=== PATIENT | female | born 1975 | race Caucasian/White ===

== ENCOUNTER 2017-01-10 07:55 | Emergency (ER) | payer SELFPAY ==
[~2017-01-10] VITALS: Ht 157.5 cm; Wt 104.0 kg
[~2017-01-10 07:55] MED LIST: BUSP15TA PO; LISI20TA3 PO; METH10TA PO; PRED20 PO; PRIL20CA9 PO; REME15TA PO; VIIB40TA PO
[2017-01-10 08:00] VITALS: BP 149/84; PULSE 66; RESP 16; TEMP 98; O2SAT 99
[2017-01-10] MEDS ORDERED: MELO-1 PO (08:22)
--- NOTE | 2017-01-10 08:23 | PD ---
HPI Chief Complaint: Musculoskeletal Complaint Time Seen by Provider: 08:06 Travel History International Travel<30 days: No Contact w/Intl Traveler<30days: No Traveled to known affect area: No History of Present Illness HPI This is a 41 year old female who presents to the emergency department with pain in her hands, constant, moderate severity, worse with movement described as an aching pain in the joints of her 2nd and 3rd fingers on both hands. Pt. has never had pain like this before. She says she just woke up with it. She works at [employer] and works with her hands at a panchal register hasn't been doing any new repetitive movements. She denies any neck pain or shooting pains down her arms and denies any numbness. She is on methadone for history of opiate dependence. She doesn't have a primary care physician. He also says she's been getting some joint aches in her feet and isn't sure if that's related. PFSH Past Medical History Bipolar Disorder: Yes Anxiety: Yes Depression: Yes Cardiovascular Problems: Yes (HTN) High Cholesterol: Yes Diminished Hearing: No GERD: Yes Hypertension: Yes Respiratory: Yes (BRONCHITIS, PNEUMONIAS) Immunizations Current: Yes PNEUMOCCOCAL Vaccine (Year): 2 ?: Not LMP: MENOPAUSE-+ : 2 Para: 1 Miscarriage: 1 Past Surgical History Surgical History: No Previous Surgery Family History Family Myocardial Infarction: Yes Social History Alcohol Use: Yes (SOCIAL) Tobacco Use: Yes (1PPD) Substance Use: No Allergies-Medications (Allergen,Severity, Reaction): Coded Allergies: No Known Allergies (Verified , 01/10/17) Reported Meds & Prescriptions Reported Meds & Active Scripts Active Reported Viibryd (Vilazodone) 40 Mg Tab 40 Mg PO DAILY Lisinopril-Hctz 20-25 Mg Tab 1 Tab PO DAILY Prilosec (Omeprazole) 20 Mg Cap 20 Mg PO DAILY Remeron (Mirtazapine) 15 Mg Tab 15 Mg PO HS Buspirone (Buspirone HCl) 15 Mg Tab 15 Mg PO BID Methadone (Methadone HCl) 10 Mg Tab 50 Mg PO DAILY Review of Systems Except as stated in HPI: all other systems reviewed are Neg Physical Exam Narrative GENERAL: Well-appearing, no acute distress, nontoxic SKIN: Warm and dry. HEAD: Atraumatic. Normocephalic. Neck: No cervical spine tenderness ENT: No nasal bleeding or discharge. Moist mucous membranes MUSCULOSKELETAL: No obvious deformities. No clubbing. No cyanosis. No edema. Vascular: Less than 2 second capillary refill in both hands in the fingers, tender to palpation along the second and third fingers in both hands, no cyanosis or signs of tissue ischemia NEUROLOGICAL: Awake and alert. No obvious cranial nerve deficits. Motor grossly within normal limits. Normal speech. PSYCHIATRIC: Appropriate mood and affect; insight and judgment normal. Data Data Last Documented VS Vital Signs Date Time Temp Pulse Resp B/P Pulse Ox O2 Delivery O2 Flow Rate FiO2 01/10/17 08:00 98.0 66 16 149/84 99 MDM Medical Decision Making Medical Screen Exam Complete: Yes Emergency Medical Condition: Yes Differential Diagnosis Osteoarthritis, rheumatoid arthritis, cervical radiculopathy, Raynaud phenomenon Narrative Course This is a 41-year-old female who presents to the emergency department with pain in her fingers on both hands. Pain is atypical and seems to be focused in her joints bilaterally. She has no obvious swelling or ischemia involving her fingers. She has no pain in her neck. I doubt a cervical radiculopathy given the pain is localized in her joints and her fingers are very tender. I suspect the patient has arthritis. Patient will be discharged on meloxicam and can follow up as needed. Diagnosis Primary Impression: Arthritis of hand Patient Instructions: General Instructions Departure Forms: Tests/Procedures, Work Release Enter return to work date: Jan 11, 2017 Additional Instructions: If you develop increasing pain, coolness, weakness or numbness of your hands return to the emergency department. Med/Other Pt SpecificInfo: Prescription(s) given Scripts Meloxicam 15 Mg Tab15 Mg PO DAILY #30 TAB Ref 0 Prov:Rayna Zamarripa MD 01/10/17 Disposition: 01 DISCHARGE HOME Condition: Stable Rayna Zamarripa MD Jan 10, 2017 08:23
== END 2017-01-10 08:32 | disposition home or self-care (01) ==
LOC: PHED 07:55
DX: M19.042 Primary osteoarthritis, left hand (principal); M19.041 Primary osteoarthritis, right hand; I10 Essential (primary) hypertension; E78.00 Pure hypercholesterolemia, unspecified; F17.200 Nicotine dependence, unspecified, uncomplicated; Z86.79 Personal history of other diseases of the circulatory system; Z87.19 Personal history of other diseases of the digestive system; Z87.09 Personal history of other diseases of the respiratory system; Z86.59 Personal history of other mental and behavioral disorders
CPT/HCPCS: 99283

== ENCOUNTER 2017-03-16 15:25 | Emergency (ER) | payer MEDICAID, OTHER ==
[~2017-03-16] VITALS: Ht 157.5 cm; Wt 101.0 kg
[~2017-03-16 15:25] MED LIST changes: +MELO-1 PO; -PRED20 PO
[2017-03-16 15:26] VITALS: BP 173/102; PULSE 86; RESP 16; TEMP 98.1; O2SAT 100
--- NOTE | 2017-03-16 16:31 | PD ---
HPI Chief Complaint: Musculoskeletal Complaint Time Seen by Provider: 16:20 Travel History International Travel<30 days: No Contact w/Intl Traveler<30days: No Traveled to known affect area: No History of Present Illness HPI 41-year-old female presents to the emergency room for evaluation of acute on chronic bilateral leg pain for the past 4 days. She cannot localize pain. Patient states she developed bilateral leg pain 1 year ago and was treated successfully with Percocet. She lost her prescription for Percocet and recently switched to methadone but did not like the way it made her feel so she quit methadone cold . States for several weeks following quitting, she had no pain but pain returned 4 days ago without any trauma or injury. States she is on her legs or on day which seems to worsen the fatigue. Patient worked today. She denies lower extremity paresthesias. Pain is the worse at night and when her legs are still and improves slightly with ambulation. She has a constant urge to move her legs which keeps her up at night and is causing severe fatigue. Describes pain as dull, aching in nature. She is taking Cipro and bupropion. Patient is supposed to be on lisinopril/HCTZ but has not had her prescription filled in a long time. PFSH Past Medical History Bipolar Disorder: Yes Anxiety: Yes Depression: Yes Cardiovascular Problems: Yes (HTN) High Cholesterol: Yes Diminished Hearing: No GERD: Yes Hypertension: Yes Respiratory: Yes (BRONCHITIS, PNEUMONIAS) Immunizations Current: Yes Tetanus Vaccination: > 5 Years Influenza Vaccination: No PNEUMOCCOCAL Vaccine (Year): 2 ?: Not LMP: 2 weeks : 2 Para: 1 Miscarriage: 1 Past Surgical History Surgical History: No Previous Surgery Family History Family Myocardial Infarction: Yes Social History Alcohol Use: No Tobacco Use: Yes (1PPD) Substance Use: No Allergies-Medications (Allergen,Severity, Reaction): Coded Allergies: No Known Allergies (Verified , 01/10/17) Reported Meds & Prescriptions Reported Meds & Active Scripts Active Lyrica (Pregabalin) 75 Mg Cap 75 Mg PO DAILY Meloxicam 15 Mg Tab 15 Mg PO DAILY Reported Viibryd (Vilazodone) 40 Mg Tab 40 Mg PO DAILY Prilosec (Omeprazole) 20 Mg Cap 20 Mg PO DAILY Remeron (Mirtazapine) 15 Mg Tab 15 Mg PO HS Buspirone (Buspirone HCl) 15 Mg Tab 15 Mg PO BID Review of Systems Except as stated in HPI: all other systems reviewed are Neg Physical Exam Narrative GENERAL: Well-nourished, well-developed female in no acute distress. Afebrile. Ambulatory. SKIN: Warm and dry. No erythema or ecchymosis. HEAD: Normocephalic. EYES: No scleral icterus. No injection or drainage. NECK: Supple, trachea midline. No JVD or lymphadenopathy. CARDIOVASCULAR: Regular rate and rhythm without murmurs, gallops, or rubs. RESPIRATORY: Breath sounds equal bilaterally. No accessory muscle use. MUSCULOSKELETAL: No cyanosis, or edema. 1+ dorsalis pedis pulses bilaterally. Full range of motion of bilateral lower extremities. Data Data Last Documented VS Vital Signs Date Time Temp Pulse Resp B/P Pulse Ox O2 Delivery O2 Flow Rate FiO2 03/16/17 15:26 98.1 86 16 173/102 100 MDM Medical Decision Making Medical Screen Exam Complete: Yes Emergency Medical Condition: Yes Medical Record Reviewed: Yes Differential Diagnosis Restless leg syndrome versus acute on chronic pain versus Narrative Course 41-year-old female presents to the emergency room for evaluation of acute on chronic bilateral leg pain. Patient was treating her pain with Percocet and methadone but has recently withdrawn from those. Pain is worse at night and accompanied by an urge to move her legs that is keeping her from sleeping. Physical exam is reassuring. No erythema, ecchymosis, or edema of bilateral legs. 1+ dorsalis pedis pulse in bilateral feet. Patient was offered gabapentin and states she has had the medication in the past without significant relief in symptoms. I spoke to my attending physician, Dr. Iglesias , who recommends Lyrica. Patient given short course of low-dose Lyrica with recommendation to follow up with primary care physician for continuation of medication. She was given pamphlet for the [facility]. Diagnosis Primary Impression: Restless leg syndrome Referrals: Primary Care Physician Patient Instructions: General Instructions, Restless Legs Syndrome (ED) Additional Instructions: Rest and drink plenty of fluids. Take ibuprofen with food as directed, as needed for pain. Take Lyrica daily 1-3 hours before bed. Follow-up with a primary care physician for continuation of medication. Return to the emergency room for worsening symptoms. Med/Other Pt SpecificInfo: Prescription(s) given Scripts Pregabalin (Lyrica)75 Mg Cap75 Mg PO DAILY #15 CAP Ref 0 Prov:Emanuel Gudino MD 03/16/17 Disposition: 01 DISCHARGE HOME Condition: Stable Ethel Powers March 16, 2017 16:31
[2017-03-16] MEDS ORDERED: LYRI75CA PO (16:40)
[2017-03-16] MEDS ORDERED: LISI20TA3 PO (16:49)
== END 2017-03-16 16:50 | disposition home or self-care (01) ==
LOC: PHEFT 15:25
DX: G25.81 Restless legs syndrome (principal); M79.605 Pain in left leg; M79.604 Pain in right leg; R53.83 Other fatigue; I10 Essential (primary) hypertension; E78.00 Pure hypercholesterolemia, unspecified; K21.9 Gastro-esophageal reflux disease without esophagitis; F17.210 Nicotine dependence, cigarettes, uncomplicated
CPT/HCPCS: 99283

== ENCOUNTER 2017-03-23 12:55 | Emergency (ER) | payer MEDICAID, OTHER ==
[~2017-03-23] VITALS: Ht 157.5 cm; Wt 97.8 kg
[~2017-03-23 12:55] MED LIST changes: +LYRI75CA PO; -METH10TA PO
[2017-03-23 13:08] VITALS: BP 103/58; PULSE 74; RESP 14; TEMP 98; O2SAT 97
--- NOTE | 2017-03-23 14:07 | PD ---
HPI Chief Complaint: Abdominal Pain Time Seen by Provider: 13:59 Travel History International Travel<30 days: No Contact w/Intl Traveler<30days: No Traveled to known affect area: No History of Present Illness HPI 41-year-old female presents the emergency Department with reports of increasing anxiety, agitation, nausea, vomiting, and decreased appetite over the past 3 days. Patient denies fever, chills, or other symptoms. Patient states she was going a methadone clinic until one month ago when she stopped. She denies suicidal or homicidal ideation. Patient has a history of psychiatric illness with history of anxiety, and bipolar like symptoms including hallucinations. Patient is currently on BuSpar 15 mg 3 times a day, Remeron 15 mg daily at bedtime, and Viibryd (Vilazodone) 40 Mg Tab 40 Mg PO DAILY. Patient feels somewhat manic but denies hallucinations at this time. She denies suicidal or homicidal ideation. Patient states she is normally seen at [facility]. She denies urinary symptoms. She states her stomach feels anxious and tied in knots, but has no specific complaints of pain. She has no known drug allergies. PFSH Past Medical History Bipolar Disorder: Yes Anxiety: Yes Depression: Yes Cardiovascular Problems: Yes (HTN) High Cholesterol: Yes Diminished Hearing: No GERD: Yes Hypertension: Yes Respiratory: Yes (BRONCHITIS, PNEUMONIAS) Immunizations Current: Yes Tetanus Vaccination: < 5 Years Influenza Vaccination: No PNEUMOCCOCAL Vaccine (Year): 2 ?: Not : 2 Para: 1 Miscarriage: 1 Past Surgical History Surgical History: No Previous Surgery Family History Family Myocardial Infarction: Yes Social History Alcohol Use: No Tobacco Use: Yes (1PPD) Substance Use: No Allergies-Medications (Allergen,Severity, Reaction): Coded Allergies: No Known Allergies (Verified , 03/23/17) Reported Meds & Prescriptions Reported Meds & Active Scripts Active Xanax (Alprazolam) 1 Mg Tab 1 Mg PO Q6H PRN Lisinopril-Hctz 20-25 Mg Tab 1 Tab PO DAILY Meloxicam 15 Mg Tab 15 Mg PO DAILY Reported Viibryd (Vilazodone) 40 Mg Tab 40 Mg PO DAILY Remeron (Mirtazapine) 15 Mg Tab 15 Mg PO HS Buspirone (Buspirone HCl) 15 Mg Tab 15 Mg PO BID Review of Systems Except as stated in HPI: all other systems reviewed are Neg General / Constitutional: No: Fever Eyes: No: Visual changes HENT: No: Headaches Cardiovascular: No: Chest Pain or Discomfort Respiratory: No: Shortness of Breath Gastrointestinal: Positive: Nausea, Vomiting, Loss of Appetite, No: Diarrhea, Abdominal Pain Genitourinary: No: Urgency, Frequency, Dysuria Musculoskeletal: No: Pain Skin: No Rash Neurologic: No: Weakness Psychiatric: Positive: Anxiety, Other (somewhat manic.), No: Depression, Suicidal Ideations, Disorder of Thought, Mood Disorder, Substance Abuse, Homicidal Ideation Endocrine: No: Polydipsia Hematologic/Lymphatic: No: Easy Bruising Physical Exam Narrative GENERAL: Patient appears anxious but in no acute distress. SKIN: Warm and dry. Normal color. Normal turgor. No diaphoresis. HEAD: Atraumatic. Normocephalic. EYES: Pupils equal and round. No scleral icterus. No injection or drainage. ENT: No nasal bleeding or discharge. Mucous membranes pink and moist. Pharynx is clear. Airway is patent. NECK: Trachea midline. Supple and nontender. CARDIOVASCULAR: Regular rate and rhythm. RESPIRATORY: No accessory muscle use. Clear to auscultation. Breath sounds equal bilaterally. GASTROINTESTINAL: Abdomen soft, non-tender, nondistended. Hepatic and splenic margins not palpable. No CVA tenderness. MUSCULOSKELETAL: Extremities without clubbing, cyanosis, or edema. No obvious deformities. NEUROLOGICAL: Awake and alert. No obvious cranial nerve deficits. Motor grossly within normal limits. Five out of 5 muscle strength in the arms and legs. Normal speech. PSYCHIATRIC: Patient appears anxious and somewhat manic; insight and judgment normal. Patient is not suicidal or homicidal. Data Data Last Documented VS Vital Signs Date Time Temp Pulse Resp B/P Pulse Ox O2 Delivery O2 Flow Rate FiO2 03/23/17 13:08 98.0 74 14 103/58 97 Orders Complete Blood Count With Diff (03/23/17 14:20) Comprehensive Metabolic Panel (03/23/17 14:20) Urinalysis - C+S If Indicated (03/23/17 14:20) Ed Urine Pregnancytest Poc (03/23/17 14:20) Drug Screen, Random Urine (03/23/17 14:20) Urine Culture (03/23/17 14:30) Labs Laboratory Tests Test 03/23/17 03/23/17 14:30 14:35 Urine Color YELLOW Urine Turbidity CLOUDY Urine pH 5.0 Urine Specific Rogers GREATER THAN 1.035 Urine Protein 100 mg/dL Urine Glucose (UA) NEG mg/dL Urine Ketones TRACE mg/dL Urine Occult Blood NEG Urine Nitrite NEG Urine Bilirubin NEG Urine Leukocyte Esterase NEG Urine WBC 0-2 /hpf Urine Squamous Epithelial > 8 /hpf Cells Urine Amorphous Sediment FEW Urine Bacteria MOD /hpf Microscopic Urinalysis Comment CULTURE INDICATED Urine Barbiturates Screen NEG Urine Amphetamines Screen NEG Urine Benzodiazepines Screen NEG Urine Cannabinoids Screen POS White Blood Count 14.6 TH/MM3 Red Blood Count 5.22 MIL/MM3 Hemoglobin 15.1 GM/DL Hematocrit 45.9 % Mean Corpuscular Volume 88.0 FL Mean Corpuscular Hemoglobin 28.9 PG Mean Corpuscular Hemoglobin 32.9 % Concent Red Cell Distribution Width 14.4 % Platelet Count 338 TH/MM3 Mean Platelet Volume 9.2 FL Neutrophils (%) (Auto) 71.0 % Lymphocytes (%) (Auto) 21.9 % Monocytes (%) (Auto) 5.8 % Eosinophils (%) (Auto) 0.7 % Basophils (%) (Auto) 0.6 % Neutrophils # (Auto) 10.4 TH/MM3 Lymphocytes # (Auto) 3.2 TH/MM3 Monocytes # (Auto) 0.8 TH/MM3 Eosinophils # (Auto) 0.1 TH/MM3 Basophils # (Auto) 0.1 TH/MM3 CBC Comment DIFF FINAL Differential Comment Sodium Level 141 MEQ/L Potassium Level 3.2 MEQ/L Chloride Level 104 MEQ/L Carbon Dioxide Level 29.7 MEQ/L Anion Gap 7 MEQ/L Blood Urea Nitrogen 19 MG/DL Creatinine 1.30 MG/DL Estimat Glomerular Filtration 45 ML/MIN Rate Random Glucose 106 MG/DL Calcium Level 9.3 MG/DL Total Bilirubin 0.5 MG/DL Aspartate Amino Transf 12 U/L (AST/SGOT) Alanine Aminotransferase 24 U/L (ALT/SGPT) Alkaline Phosphatase 84 U/L Total Protein 8.1 GM/DL Albumin 4.4 GM/DL [facility] Medical Decision Making Medical Screen Exam Complete: Yes Emergency Medical Condition: Yes Medical Record Reviewed: Yes Differential Diagnosis Nausea and vomiting. Anxiety. Manic episode. Narrative Course Patient medically stable at time of exam. Labs are ordered including CBC, CMP, urinalysis, urine drug screen. CBC shows mild leukocytosis of 14.6. There is no shift. CMP shows mild hypo kalemia at 3.2. Creatinine is somewhat elevated at 1.30 Urine is concentrated at greater than 1.035. It is cloudy. It is greater than 8 epithelial cells per high-power field and moderate bacteria. It was cultured. However I do not feel this was a clean specimen. Urine drug screen is positive for marijuana otherwise negative. Call was placed to Dr. Negrete, the psychiatrist on-call. 144, call was returned by Dr. Negrete, and the patient was discussed. He recommended the patient stop all of her caffeine and other stimulants, but felt that he should follow-up with her doctor at the [facility] clinic for any medication changes. Patient is discussed with Dr. Calix. Dr. Camacho recommended Ativan 1 mg every 6 hours when necessary #8. Patient is to follow-up with [facility] on Sunday. Patient can come back if symptoms worsen over the weekend. Diagnosis Primary Impression: Anxiety Additional Impressions: Manic affective disorder, recurrent episode, mild degree Dehydration, mild Referrals: [facility] days Patient Instructions: Anxiety (ED), Dehydration (ED), General Instructions Med/Other Pt SpecificInfo: Prescription(s) given Scripts Alprazolam (Xanax)1 Mg Tab1 Mg PO Q6H PRN (ANXIETY) #8 TAB Ref 0 Prov:Agus Camacho MD 03/23/17 Disposition: 01 DISCHARGE HOME Condition: Stable Anibal Naik March 23, 2017 14:06
[2017-03-23 14:57] LABS: CHLORIDE 104 MEQ/L (98-107); POTASSIUM 3.2 MEQ/L (3.5-5.1); SODIUM (NA) 141 MEQ/L (136-145)
[2017-03-23 15:00] LABS: ANION GAP 7 MEQ/L (5-15); BICARBONATE 29.7 MEQ/L (21.0-32.0); BLOOD UREA NITROGEN 19 MG/DL (7-18)
[2017-03-23 15:02] LABS: BLOOD, URINE NEG (NEG); GLUCOSE,URINE NEG (NEG); KETONE, URINE TRACE mg/dL (NEG); NITRITE,URINE NEG (NEG)
[2017-03-23 15:03] LABS: ALT (GPT) 24 U/L (10-53); AST (GOT) 12 U/L (15-37); GLOMERULAR FILTRATION RATE 45 ML/MIN (>89)
[2017-03-23 15:05] LABS: TOTAL BILIRUBIN ADULT 0.5 MG/DL (0.2-1.0)
[2017-03-23 15:06] LABS: ALKALINE PHOSPHATASE 84 U/L (45-117)
[2017-03-23 15:08] LABS: AUTOMATED NEUTROPHIL # 10.4 TH/MM3 (1.8-7.7); BASOPHIL # 0.1 TH/MM3 (0-0.2); BASOPHIL % 0.6 % (0.0-2.0); EOSINOPHIL # 0.1 TH/MM3 (0-0.4); EOSINOPHIL % 0.7 % (0.0-4.0); HEMATOCRIT 45.9 % (35.0-46.0); LYMPH % 21.9 % (9.0-44.0); LYMPHOCYTE # 3.2 TH/MM3 (1.0-4.8); MEAN CORPUSCULAR HEMOGLOBIN 28.9 PG (27.0-34.0); MEAN CORPUSCULAR HGB CONC 32.9 % (32.0-36.0); MONO % 5.8 % (0.0-8.0); PLATELET COUNT 338 TH/MM3 (150-450); RED BLOOD COUNT 5.22 MIL/MM3 (4.00-5.30); RED CELL DISTRIBUTION WIDTH 14.4 % (11.6-17.2); WHITE BLOOD COUNT 14.6 TH/MM3 (4.0-11.0)
[2017-03-23] MEDS ORDERED: XANA1TAB2 PO (15:13)
[2017-03-23 15:15] LABS: HEMO FLAGS DIFF FINAL
[2017-03-23 15:29] LABS: AMPHETAMINE, URINE NEG (NEG)
[2017-03-23 15:30] LABS: BARBITURATES, URINE NEG (NEG); URINE COLOR YELLOW (YELLW/STRAW)
[2017-03-23 15:31] LABS: SQUAMOUS EPITHELIAL CELL URINE > 8 /hpf (0-5); WBC, URINE 0-2 /hpf (0-5)
[2017-03-23 15:32] LABS: BACTERIA, URINE MOD /hpf; COMMENT (UR) CULTURE INDICATED; CULTURE IF INDICATED CULTURE INDICATED
[2017-03-23 15:35] LABS: COCAINE, URINE NEG (NEG)
== END 2017-03-23 15:52 | disposition home or self-care (01) ==
LOC: PHED 12:55 → PHEFT 15:52
DX: F41.9 Anxiety disorder, unspecified (principal); F31.89 Other bipolar disorder; E86.0 Dehydration; R11.2 Nausea with vomiting, unspecified; R63.0 Anorexia; R82.99 Other abnormal findings in urine; E78.00 Pure hypercholesterolemia, unspecified; F17.200 Nicotine dependence, unspecified, uncomplicated; Z86.59 Personal history of other mental and behavioral disorders; Z86.79 Personal history of other diseases of the circulatory system; Z87.19 Personal history of other diseases of the digestive system
CPT/HCPCS: 80053; 80307; 81001; 84703; 85025; 87086; 99284

== ENCOUNTER 2017-12-10 14:43 | Emergency (ER) | payer BC, MEDICAID ==
[~2017-12-10] VITALS: Ht 157.5 cm; Wt 101.6 kg
[~2017-12-10 14:43] MED LIST changes: -LYRI75CA PO; -MELO-1 PO; +MELO15TA20 PO; -PRIL20CA9 PO; +XANA1TAB2 PO
[2017-12-10 14:48] VITALS: BP 240/116; PULSE 77; RESP 16; TEMP 97.9; O2SAT 96
[2017-12-10] MEDS ORDERED: HYDROCHLOROTHIAZIDE 25 MG TAB PO ONE (15:15)
[2017-12-10] MEDS ORDERED: HYDROCHLOROTHIAZIDE 50 MG TAB PO ONE (15:15)
[2017-12-10] MEDS ORDERED: LORazepam 2 MG TAB PO ONE (15:15)
--- NOTE | 2017-12-10 15:18 | PD ---
HPI . High blood pressure Chief Complaint: Hypertension Time Seen by Provider: 15:01 Travel History International Travel<30 days: No Contact w/Intl Traveler<30days: No Traveled to known affect area: No History of Present Illness HPI This is a patient who has a history of high blood pressure but has been off of her HCTZ for several months because of financial reasons. She is a patient at [facility]. She was there today for a routine visit and had her blood pressure checked. It was noted to be high. That has caused her extreme anxiety. She subsequently presents to us for treatment. She is not having chest pain or shortness of breath. No peripheral edema. She does report blurred vision. No significant headache. She states that her high blood pressure is exacerbated by anxiety. Her anxiety is exacerbated by her high blood pressure. PFSH Past Medical History Bipolar Disorder: Yes Anxiety: Yes Depression: Yes Cardiovascular Problems: Yes (HTN) High Cholesterol: Yes Diminished Hearing: No GERD: Yes Hypertension: Yes Respiratory: Yes (BRONCHITIS, PNEUMONIAS) Immunizations Current: Yes PNEUMOCCOCAL Vaccine (Year): 2 : 2 Para: 1 Miscarriage: 1 Social History Alcohol Use: No Tobacco Use: Yes (1PPD) Substance Use: No Allergies-Medications (Allergen,Severity, Reaction): Coded Allergies: No Known Allergies (Verified Adverse Reaction, Unknown, 12/10/17) Reported Meds & Prescriptions Reported Meds & Active Scripts Active Reported Viibryd (Vilazodone) 40 Mg Tab 40 Mg PO DAILY Remeron (Mirtazapine) 15 Mg Tab 15 Mg PO HS Buspirone (Buspirone HCl) 15 Mg Tab 15 Mg PO TID Review of Systems Except as stated in HPI: all other systems reviewed are Neg Eyes: Positive: Blurred Vision Cardiovascular: No: Chest Pain or Discomfort Respiratory: No: Shortness of Breath Musculoskeletal: No: Edema Psychiatric: Positive: Anxiety Physical Exam Narrative GENERAL: Awake and alert. Very anxious. SKIN: warm/dry. Normal color and turgor. HEAD: Normocephalic. Atraumatic. EYES: Pupils equal and round. No scleral icterus. No injection or drainage. ENT: No nasal bleeding or discharge. Mucous membranes pink and moist. NECK: Trachea midline. Full range of motion without pain.. CARDIOVASCULAR: Regular rate and rhythm. Heart sounds normal. RESPIRATORY: No accessory muscle use. Clear to auscultation. Breath sounds equal bilaterally. MUSCULOSKELETAL: No obvious deformities. No peripheral edema. NEUROLOGICAL: Awake and alert. No obvious cranial nerve deficits. Motor grossly within normal limits. Normal speech. PSYCHIATRIC: Very anxious.. Data Data Last Documented VS Vital Signs Date Time Temp Pulse Resp B/P (MAP) Pulse Ox O2 Delivery O2 Flow Rate FiO2 12/10/17 16:15 73 17 211/110 (143) 96 Room Air 12/10/17 14:48 97.9 Orders Orders Lorazepam (Ativan) (12/10/17 15:15) Hydrochlorothiazide (Hydrodiuril) (12/10/17 15:15) Hydrochlorothiazide (Hydrodiuril) (12/10/17 15:15) [facility] Medical Decision Making Medical Screen Exam Complete: Yes Emergency Medical Condition: Yes Differential Diagnosis My differential diagnosis anxiety includes but is not limited to generalized anxiety disorder, depression, psychoses, drug abuse, alcohol abuse Narrative Course This patient presents extremely anxious about her blood pressure. She is supposed to be on HCTZ for hypertension but has not been able to afford it for the last several months. Her blood pressure was taken at [facility] today as part of a routine visit. It was found to be elevated. This has caused her extreme anxiety. I have ordered both Ativan and HCTZ. I have asked the nurse to NOT place her on the blood pressure monitor. Blood pressure is still high but has come down a little. I will discharge her to home with a prescription for her usual medication. Diagnosis Primary Impression: Anxiety Additional Impression: Hypertension Qualified Codes: I10 - Essential (primary) hypertension Patient Instructions: Chronic Hypertension (DC), General Instructions Med/Other Pt SpecificInfo: Prescription(s) given Scripts Hydrochlorothiazide (Hydrochlorothiazide) 25 Mg Tab 25 MG PO DAILY, #30 TAB 0 Refills Prov: Liudmila Austin MD 12/10/17 Disposition: 01 DISCHARGE HOME Condition: Stable Liudmila Austin MD Dec 10, 2017 15:17
[2017-12-10 16:15] VITALS: BP 211/110; PULSE 73; RESP 17; O2SAT 96
[2017-12-10] MEDS ORDERED: HYDR25TA5 PO (16:21)
[2017-12-10] MEDS ORDERED: LISI20TA3 PO (16:55)
== END 2017-12-10 16:59 | disposition home or self-care (01) ==
LOC: PHED 14:43
DX: F41.9 Anxiety disorder, unspecified (principal); I10 Essential (primary) hypertension; F17.210 Nicotine dependence, cigarettes, uncomplicated; F31.9 Bipolar disorder, unspecified; E78.00 Pure hypercholesterolemia, unspecified; K21.9 Gastro-esophageal reflux disease without esophagitis
CPT/HCPCS: 99283

== ENCOUNTER 2017-12-12 11:49 | Emergency (ER) | payer BC ==
[~2017-12-12] VITALS: Ht 157.5 cm; Wt 86.0 kg
[~2017-12-12 11:49] MED LIST changes: -MELO15TA20 PO; -XANA1TAB2 PO
[2017-12-12 11:59] VITALS: BP 137/95; PULSE 114; RESP 18; TEMP 98.1; O2SAT 94
[2017-12-12 12:07] VITALS: BP 127/88; PULSE 103; RESP 18; O2SAT 95
--- NOTE | 2017-12-12 12:21 | PD ---
HPI Chief Complaint: Chest Pain Time Seen by Provider: 12:17 Travel History International Travel<30 days: No Contact w/Intl Traveler<30days: No Traveled to known affect area: No History of Present Illness HPI 42-year-old female patient with history of hypertension, diabetes, smoking, presents to the ER today with several days' history of coughing, and last night started having palpitations and sharp 7 out of 10 chest discomfort which is substernal, sometimes radiates up to her neck, sometimes her back, sometimes down her arms. She states it worsens with exertion and she reports some shortness of breath. She states she is wheezing. She denies any recent fevers , vomiting, or other symptoms. Modifying Factors: Worse with exertion Associated Signs & Symptoms: Coughing, wheezing, chest discomfort, dyspnea on exertion Risk Factors: Smoking PFSH Past Medical History Bipolar Disorder: Yes Anxiety: Yes Depression: Yes Cardiovascular Problems: Yes (HTN) High Cholesterol: Yes Diminished Hearing: No GERD: Yes Hypertension: Yes Respiratory: Yes (BRONCHITIS, PNEUMONIA) Immunizations Current: Yes Influenza Vaccination: No PNEUMOCCOCAL Vaccine (Year): 2 ?: Not LMP: 11/16/17 : 2 Para: 1 Miscarriage: 1 Past Surgical History Surgical History: No Previous Surgery Family History Family Myocardial Infarction: Yes Social History Alcohol Use: Yes (occass) Tobacco Use: Yes (1PPD) Substance Use: No Allergies-Medications (Allergen,Severity, Reaction): Coded Allergies: No Known Allergies (Verified Adverse Reaction, Unknown, 12/10/17) Reported Meds & Prescriptions Reported Meds & Active Scripts Active Lisinopril-Hctz 20-25 Mg Tab 1 Tab PO DAILY Reported Viibryd (Vilazodone) 40 Mg Tab 40 Mg PO DAILY Remeron (Mirtazapine) 15 Mg Tab 15 Mg PO HS Buspirone (Buspirone HCl) 15 Mg Tab 15 Mg PO TID Review of Systems Except as stated in HPI: all other systems reviewed are Neg Physical Exam Narrative GENERAL: Well-developed middle age female patient currently in mild distress. Awake and oriented 3. SKIN: Focused skin assessment warm/dry. HEAD: Atraumatic. Normocephalic. EYES: Pupils equal and round. No scleral icterus. No injection or drainage. ENT: No nasal bleeding or discharge. Mucous membranes pink and moist. NECK: Trachea midline. No JVD. Supple. CARDIOVASCULAR: Regular rate and rhythm. No murmur appreciated. RESPIRATORY: No accessory muscle use. Wheezes throughout. Breath sounds equal bilaterally. GASTROINTESTINAL: Abdomen soft, non-tender, nondistended. Hepatic and splenic margins not palpable. MUSCULOSKELETAL: No obvious deformities. No clubbing. No cyanosis. No edema. NEUROLOGICAL: Awake and alert. No obvious cranial nerve deficits. Motor grossly within normal limits. Normal speech. PSYCHIATRIC: Appropriate mood and affect; insight and judgment normal. Data Data Last Documented VS Vital Signs Date Time Temp Pulse Resp B/P (MAP) Pulse Ox O2 Delivery O2 Flow Rate FiO2 12/12/17 13:06 95 20 96 Room Air 12/12/17 11:59 98.1 Orders Orders Complete Blood Count With Diff (12/12/17 12:17) Comprehensive Metabolic Panel (12/12/17 12:17) D-Dimer (12/12/17 12:17) Act Partial Throm Time (Ptt) (12/12/17 12:17) Prothrombin Time / Inr (Pt) (12/12/17 12:17) Ckmb (Isoenzyme) Profile (12/12/17 12:17) Troponin I (12/12/17 12:17) Influenzae A/B Antigen (12/12/17 12:17) Iv Access Insert/Monitor (12/12/17 12:17) Ecg Monitoring (12/12/17 12:17) Oximetry (12/12/17 12:17) Oxygen Administration (12/12/17 12:17) Chest, Single Ap (12/12/17 12:17) Sodium Chloride 0.9% Flush (Ns Flush) (12/12/17 12:30) Methylprednisolone So Succ Inj (Solumedr (12/12/17 12:30) Albuterol-Ipratropium Neb (Duoneb Neb) (12/12/17 12:30) Albuterol-Ipratropium Neb (Duoneb Neb) (12/12/17 13:45) Labs Laboratory Tests Test 12/12/17 12:25 White Blood Count 10.4 TH/MM3 Red Blood Count 5.50 MIL/MM3 Hemoglobin 16.5 GM/DL Hematocrit 48.9 % Mean Corpuscular Volume 88.9 FL Mean Corpuscular Hemoglobin 29.9 PG Mean Corpuscular Hemoglobin Concent 33.7 % Red Cell Distribution Width 13.5 % Platelet Count 386 TH/MM3 Mean Platelet Volume 8.4 FL Neutrophils (%) (Auto) 65.0 % Lymphocytes (%) (Auto) 28.3 % Monocytes (%) (Auto) 4.2 % Eosinophils (%) (Auto) 1.8 % Basophils (%) (Auto) 0.7 % Neutrophils # (Auto) 6.8 TH/MM3 Lymphocytes # (Auto) 2.9 TH/MM3 Monocytes # (Auto) 0.4 TH/MM3 Eosinophils # (Auto) 0.2 TH/MM3 Basophils # (Auto) 0.1 TH/MM3 CBC Comment DIFF FINAL Differential Comment Prothrombin Time 10.2 SEC Prothromb Time International Ratio 1.0 RATIO Activated Partial Thromboplast Time 25.9 SEC D-Dimer Quantitative (PE/DVT) 0.21 MG/L FEU Blood Urea Nitrogen 20 MG/DL Creatinine 0.82 MG/DL Random Glucose 108 MG/DL Total Protein 8.9 GM/DL Albumin 4.2 GM/DL Calcium Level 9.2 MG/DL Alkaline Phosphatase 89 U/L Aspartate Amino Transf (AST/SGOT) 19 U/L Alanine Aminotransferase (ALT/SGPT) 24 U/L Total Bilirubin 0.5 MG/DL Sodium Level 137 MEQ/L Potassium Level 4.1 MEQ/L Chloride Level 102 MEQ/L Carbon Dioxide Level 27.6 MEQ/L Anion Gap 7 MEQ/L Estimat Glomerular Filtration Rate 76 ML/MIN Total Creatine Kinase 65 U/L Troponin I LESS THAN 0.02 NG/ML MDM Medical Decision Making Medical Screen Exam Complete: Yes Emergency Medical Condition: Yes Medical Record Reviewed: Yes Interpretation(s) EKG shows sinus tachycardia rate of 110 bpm with no signs of acute ST-T changes. Laboratory Tests Test 12/12/17 12:25 Red Blood Count 5.50 MIL/MM3 (4.00-5.30) Hemoglobin 16.5 GM/DL (11.6-15.3) Hematocrit 48.9 % (35.0-46.0) Blood Urea Nitrogen 20 MG/DL (7-18) Random Glucose 108 MG/DL (74-106) Total Protein 8.9 GM/DL (6.4-8.2) Estimat Glomerular Filtration Rate 76 ML/MIN (>89) Troponin I LESS THAN 0.02 NG/ML Last 24 hours Impressions Chest X-Ray 12/12/17 1217 Signed Impressions: Service Date/Time: Tuesday, December 12, 2017 12:31 - CONCLUSION: No acute cardiopulmonary abnormality is identified. Liam Kumar MD Differential Diagnosis Chest discomfort, dyspnea on exertion, wheezing, coughing: Bronchitis versus pneumonia versus ACS Narrative Course Chest x-ray did not show any signs of acute pulmonary processes. Lab work was fairly unremarkable. Patient was wheezing and was given Solu-Medrol and nebulizers in the ER with improvement in symptoms on reevaluation at 2 PM. At this point, my plan would be to release her with further treatment for bronchitis. Return for worsening in symptoms as needed. The plan has been discussed with her and she states understanding. Influenza testing is negative as well. Diagnosis Primary Impression: Acute viral bronchitis Med/Other Pt SpecificInfo: Prescription(s) given Scripts Albuterol 6.7 GM Inh (Proventil Hfa 6.7 GM Inh) 90 Mcg/Act Aer 2 PUFF INH Q4-6H Y for SHORTNESS OF BREATH, #1 INHALER 0 Refills Prov: Angely Ibarra MD 12/12/17 Prednisone (Prednisone) 50 Mg Tab 50 MG PO DAILY for 5 Days, #5 TAB 0 Refills Prov: Angely Ibarra MD 12/12/17 Disposition: 01 DISCHARGE HOME Condition: Stable Angely Ibarra MD Dec 12, 2017 12:21
[2017-12-12 12:30] VITALS: O2SAT 96
[2017-12-12] MEDS ORDERED: SODIUM CHLORIDE 0.9% FLUSH 10 ML FLUSH IVF PRN (12:30)
[2017-12-12] MEDS ORDERED: methylPREDNISolone SOD SUCC 125 MG/2 ML VIAL IV PUSH ONE (12:30)
[2017-12-12 12:37] VITALS: BP 128/83; PULSE 109; RESP 18; O2SAT 95
[2017-12-12] MEDS: RESP: ALBUTEROL 2.5 MG/IPRATROPIUM 0.5 MG NEB (SCH) INH ×3 (12:42→13:54)
[2017-12-12 12:51] LABS: CHLORIDE 102 MEQ/L (98-107); SODIUM (NA) 137 MEQ/L (136-145)
[2017-12-12 12:54] LABS: AUTOMATED NEUTROPHIL # 6.8 TH/MM3 (1.8-7.7); BASOPHIL # 0.1 TH/MM3 (0-0.2); BASOPHIL % 0.7 % (0.0-2.0); EOSINOPHIL # 0.2 TH/MM3 (0-0.4); EOSINOPHIL % 1.8 % (0.0-4.0); HEMATOCRIT 48.9 % (35.0-46.0); HEMOGLOBIN 16.5 GM/DL (11.6-15.3); LYMPH % 28.3 % (9.0-44.0); LYMPHOCYTE # 2.9 TH/MM3 (1.0-4.8); MEAN CELL VOLUME 88.9 FL (80.0-100.0); MEAN CORPUSCULAR HEMOGLOBIN 29.9 PG (27.0-34.0); MEAN CORPUSCULAR HGB CONC 33.7 % (32.0-36.0); MEAN PLATELET VOLUME 8.4 FL (7.0-11.0); MONO % 4.2 % (0.0-8.0); MONOCYTE # 0.4 TH/MM3 (0-0.9); PLATELET COUNT 386 TH/MM3 (150-450); RED CELL DISTRIBUTION WIDTH 13.5 % (11.6-17.2); WHITE BLOOD COUNT 10.4 TH/MM3 (4.0-11.0)
[2017-12-12 12:55] LABS: CALCIUM 9.2 MG/DL (8.5-10.1)
[2017-12-12 12:56] LABS: ALBUMIN 4.2 GM/DL (3.4-5.0); BICARBONATE 27.6 MEQ/L (21.0-32.0); BLOOD UREA NITROGEN 20 MG/DL (7-18); GLUCOSE,RANDOM 108 MG/DL (74-106)
[2017-12-12 12:59] LABS: ALT (GPT) 24 U/L (10-53); AST (GOT) 19 U/L (15-37); CREATININE 0.82 MG/DL (0.50-1.00); GLOMERULAR FILTRATION RATE 76 ML/MIN (>89)
--- NOTE | 2017-12-12 12:59 | RADRPT ---
EXAM DATE/TIME: 12/12/2017 12:31 [facility] COMPARISON: CHEST SINGLE AP, October 08, 2016, 10:14. INDICATIONS : Cough and chest pain MEDICAL HISTORY : None. SURGICAL HISTORY : None. ENCOUNTER: Initial ACUITY: 3 days PAIN SCORE: 5/10 LOCATION: Bilateral chest FINDINGS: Portable AP view of the chest demonstrates a normal-sized cardiac silhouette. The lungs demonstrate n o definite effusion, consolidation, or pneumothorax. The bones and soft tissues demonstrate no acute finding. EKG lines overlie the patient. CONCLUSION: No acute cardiopulmonary abnormality is identified. Liam Kumar MD on December 12, 2017 at 12:56 Board Certified Radiologist. This report was verified electronically.
[2017-12-12 13:00] LABS: TOTAL BILIRUBIN ADULT 0.5 MG/DL (0.2-1.0)
[2017-12-12 13:01] LABS: TOTAL PROTEIN 8.9 GM/DL (6.4-8.2)
[2017-12-12 13:02] LABS: ALKALINE PHOSPHATASE 89 U/L (45-117)
[2017-12-12 13:04] LABS: PROTHROMBIN TIME - PATIENT 10.2 SEC (9.8-11.6); TROPONIN I LESS THAN 0.02 NG/ML (0.02-0.05)
[2017-12-12 13:06] VITALS: PULSE 95; RESP 20; O2SAT 96
[2017-12-12 13:19] LABS: D-DIMER 0.21 MG/L FEU (0.00-0.50)
[2017-12-12] MEDS ORDERED: PRED50 PO (14:23)
[2017-12-12] MEDS ORDERED: ALBU6.7H INH (14:23)
[2017-12-12 14:47] VITALS: BP 138/84
--- NOTE | 2017-12-12 17:24 | EKG ---
Date Performed: 12/12/2017 Time Performed: 11:57:44 PTAGE: 42 years EKG: SINUS TACHYCARDIA ABNORMAL RHYTHM ECG Compared to prior electrocardiogram, rate has increas ed PREVIOUS TRACING : 06/15/2011 02.54 DOCTOR: Rd Landaverde Interpretating Date/Time 12/12/2017 17:23:55
== END 2017-12-12 14:50 | disposition home or self-care (01) ==
LOC: PHED 11:49
DX: J20.8 Acute bronchitis due to other specified organisms (principal); I10 Essential (primary) hypertension; F17.200 Nicotine dependence, unspecified, uncomplicated; R06.02 Shortness of breath
CPT/HCPCS: 71045; 80053; 82550; 84484; 85025; 85379; 85610; 85730; 87804; 93005; 94640; 94664; 96374; 99285; J2930

== ENCOUNTER 2018-07-24 20:05 | Observation (INO) ==
--- NOTE | 2018-07-24 20:26 | ED ---
HPI General Chief complaint: Chest Pain Stated complaint: chest pain since this am History of Present Illness HPI narrative: 43-year-old female with history of hypertension, hyperlipidemia, here for evaluation of chest pain. The patient experienced a discomfort in her left chest this morning which lasted for several seconds and subsided. She went to work, then this evening she had 2 more episodes of left-sided chest discomfort. She described the pain as sharp, nonradiating, not associated with diaphoresis, no modifying factors. No paresthesias or motor deficits. No fevers or recent illness. No dyspnea. There is significant family history of cardiac disease in her mother. She smokes over a pack of cigarettes daily. Currently she is chest pain-free. Related Data Allergies Allergy/AdvReac Type Severity Reaction Status Date / Time No Known Allergies AdvReac Unknown Uncoded 12/10/17 15:02 Review of Systems ROS: all other systems reviewed are negative PMFSH Social History Social History Smoking Status: Current every day smoker Tobacco Type: Cigarettes How Often Do You Have a Drink Containing Alcohol: Never Recent Travel [facility] within the Last 8 Weeks: No Recent Out of Country Travel within the Last 8 Weeks: No Exam Narrative Exam Narrative: GENERAL: Well-developed, well-nourished, overweight, comfortable , no apparent distress. SKIN: Focused skin assessment warm/dry. HEAD: Atraumatic. Normocephalic. EYES: Pupils equal and round. No scleral icterus. No injection or drainage. ENT: Mucous membranes pink and moist. NECK: Trachea midline. No JVD. CARDIOVASCULAR: Regular rate and rhythm. Distal pulses brisk and equal bilaterally. RESPIRATORY: No accessory muscle use. Clear to auscultation. Breath sounds equal bilaterally. GASTROINTESTINAL: Abdomen soft, non-tender, nondistended. Hepatic and splenic margins not palpable. MUSCULOSKELETAL: No obvious deformities. No clubbing. No cyanosis. No edema. NEUROLOGICAL: Awake and alert. No obvious cranial nerve deficits. Motor grossly within normal limits. Normal speech. PSYCHIATRIC: Appropriate mood and affect; insight and judgment normal. Course Initial Documented Vital Signs Pulse Rate 74 07/24/18 20:48 Pulse Oximetry 99 07/24/18 20:48 Last Documented Vital Signs Pulse Rate 74 07/24/18 20:48 Pulse Oximetry 99 07/24/18 20:48 Medical Decision Making MDM Narrative Medical decision making narrative: Vitals, labs, and imaging studies were reviewed and were reviewed with the patient. Cardiac workup so far is essentially negative. Patient has several cardiac risk factors including hypertension, diabetes, tobaccoism, family history, obesity. Be admitted to the chest pain center for further cardiac evaluation. She is amenable to this plan. Case discussed with nurse practitioner Acacia will admit the patient to the hospitalist service under Dr. Rubin. Medical Screen Exam Complete: Yes Emergency Medical Condition: Yes Differential Diagnosis Differential Diagnosis: ACS, pneumothorax, pericarditis, PE, pneumonia, Lab Data Result diagrams: 07/24/18 20:44 07/24/18 20:44 Lab Results 07/24/18 07/24/18 07/24/18 Range/Units 20:44 20:44 20:44 CBC w Diff Auto diff final WBC 10.2 (4.0-11.0) th/mm3 RBC 4.54 (4.00-5.30) mil/mm3 Hgb 14.3 (11.6-15.3) gm/dL Hct 41.5 (35.0-46.0) % MCV 91.5 (80.0-100.0) fL MCH 31.4 (27.0-34.0) pg MCHC 34.3 (32.0-36.0) % RDW 14.1 (11.6-17.2) % Plt Count 324 (150-450) th/mm3 MPV 9.4 (7.0-11.0) fL Neut % (Auto) 41.8 (16.0-70.0) % Lymph % (Auto) 46.7 H (9.0-44.0) % [place] % (Auto) 7.4 (0.0-8.0) % Eos % (Auto) 2.9 (0.0-4.0) % Baso % (Auto) 1.2 (0.0-2.0) % Neut # (Auto) 4.2 (1.8-7.7) th/mm3 Lymph # (Auto) 4.8 (1.0-4.8) th/mm3 [place] # (Auto) 0.8 (0.0-0.9) th/mm3 Eos # (Auto) 0.3 (0.0-0.4) th/mm3 Baso # (Auto) 0.1 (0.0-0.2) th/mm3 WBC Differential . Differential Comment . PT 9.7 L (9.8-11.6) sec INR 1.0 Ratio APTT 22.3 L (24.3-30.1) sec Sodium 137 (136-145) meq/L Potassium 3.8 (3.5-5.1) meq/L Chloride 104 (98-107) meq/L Carbon Dioxide 26.1 (21.0-32.0) meq/L Anion Gap 7 (5-15) meq/L BUN 21 H (7-18) mg/dL Creatinine 1.00 (0.50-1.00) mg/dL Estimated GFR 60 L (>89) mL/min Random Glucose 92 (74-106) mg/dL Calcium 8.8 (8.5-10.1) mg/dL Total Bilirubin Less than 0.1 L (0.2-1.0) mg/dL AST 29 (15-37) U/L ALT 37 (10-53) U/L Alkaline Phosphatase 75 (45-117) U/L Total Creatine Kinase 104 (26-192) U/L CK-MB (CK-2) 1.3 (0.5-3.6) ng/mL Troponin I Less than 0.02 L (0.02-0.05) ng/mL Total Protein 7.7 (6.4-8.2) g/dL Albumin 3.9 (3.4-5.0) g/dL Imaging Data Radiologist's impression: Chest X-Ray 07/24/18 20:22 CONCLUSION: No acute cardiopulmonary disease. ECG Data Attestation: I personally reviewed and interpreted this ECG as follows: (Sinus, rate 89, normal axis, normal intervals, no acute ischemic abnormality.) Discharge Plan Discharge Disposition Patient Disposition: 30 Still Patient Discharge Condition Condition: Stable Discharge Details Diagnosis: Chest pain Physicians Team ED Provider: Lobo Sahu Primary Care Provider: UNKNOWN, Discharge Instructions Patient Printed Instructions: Chest Pain (ED) Status ED Status: In Room
--- NOTE | 2018-07-24 20:47 | XR ---
EXAM DATE: 07/24/2018 8:40 PM EDT AGE/SEX: 43 years / Female INDICATIONS: Short of breath. CLINICAL DATA: This is the patient's initial encounter. Patient reports that signs and symptoms have been present for 1 day and indicates a pain score of 0/10. MEDICAL/SURGICAL HISTORY: None. None. COMPARISON: PO, CHEST SINGLE AP, 12/12/2017. . FINDINGS: A single AP view of the chest demonstrates the lungs to be symmetrically aerated without evidence of mass, infiltrate or effusion. The cardiomediastinal contours are unremarkable. Osseous structures a re intact. CONCLUSION: No acute cardiopulmonary disease. Electronically signed by: Jono Alvarado MD 07/24/2018 8:46 PM EDT
[2018-07-24 21:02] LABS: Baso # (Auto) 0.1 th/mm3 (0.0-0.2); Baso % (Auto) 1.2 % (0.0-2.0); Eos # (Auto) 0.3 th/mm3 (0.0-0.4); Eos % (Auto) 2.9 % (0.0-4.0); Hematocrit 41.5 % (35.0-46.0); Hemoglobin 14.3 gm/dL (11.6-15.3); Lymph # (Auto) 4.8 th/mm3 (1.0-4.8); Lymph % (Auto) 46.7 % (9.0-44.0); Mean Corpuscular HGB Conc 34.3 % (32.0-36.0); Mean Corpuscular Hemoglobin 31.4 pg (27.0-34.0); Mean Corpuscular Volume 91.5 fL (80.0-100.0); Mean Platelet Volume 9.4 fL (7.0-11.0); Mono # (Auto) 0.8 th/mm3 (0.0-0.9); Mono % (Auto) 7.4 % (0.0-8.0); Neut # (Auto) 4.2 th/mm3 (1.8-7.7); Neut % (Auto) 41.8 % (16.0-70.0); Platelet Count 324 th/mm3 (150-450); Red Blood Count 4.54 mil/mm3 (4.00-5.30); Red Cell Distribution Width 14.1 % (11.6-17.2); White Blood Count 10.2 th/mm3 (4.0-11.0)
[2018-07-24 21:05] LABS: Chloride 104 meq/L (98-107); Potassium 3.8 meq/L (3.5-5.1); Sodium 137 meq/L (136-145)
[2018-07-24 21:09] LABS: Albumin 3.9 g/dL (3.4-5.0); Anion Gap 7 meq/L (5-15); Blood Urea Nitrogen 21 mg/dL (7-18); Calcium 8.8 mg/dL (8.5-10.1); Carbon Dioxide 26.1 meq/L (21.0-32.0); Glucose,Random 92 mg/dL (74-106)
[2018-07-24 21:10] LABS: Activated Partial Thrombo Time 22.3 sec (24.3-30.1); Prothrombin Time 9.7 sec (9.8-11.6)
[2018-07-24 21:12] LABS: Alanine Aminotransferase 37 U/L (10-53); Aspartate Aminotransferase 29 U/L (15-37); Glomerular Filtration Rate 60 mL/min (>89)
[2018-07-24 21:14] LABS: Total Protein 7.7 g/dL (6.4-8.2)
[2018-07-24 21:15] LABS: Alkaline Phosphatase 75 U/L (45-117); Creatine Kinase 104 U/L (26-192)
[2018-07-24 21:27] LABS: Creatine Kinase MB 1.3 ng/mL (0.5-3.6)
--- NOTE | 2018-07-25 18:54 | ECG ---
Date Performed: 07/24/2018 Time Performed: 20:18:42 PTAGE: 43 years EKG: Sinus rhythm NORMAL ECG PREVIOUS TRACING : 12/12/2017 11.57 Since the previous tracing, no significant change noted DOCTOR: Steven Schmitt Interpretating Date/Time 07/25/2018 18:50:01
== END 2018-07-24 23:58 | disposition left against medical advice (07) ==
LOC: PHED 20:05 → PHEDA 20:05 → PH3 22:43
PROVIDERS: ADMIT Family Medicine; ATTEND Family Medicine